=== PATIENT | female | born 1945 | race Caucasian/White ===

== ENCOUNTER → 2023-06-17 11:09 | Outpatient (REF) | payer OTHER, SELFPAY | LOC: HWWDC 11:09 | PROVIDERS: ATTENDING PHYSICIAN Internal Medicine | DX: Z12.31 Encounter for screening mammogram for malignant neoplasm of breast (principal) | CPT/HCPCS: 77063; 77067 ==

== ENCOUNTER → 2024-06-18 13:49 | Outpatient (REF) | payer OTHER, SELFPAY | LOC: HWWDC 13:49 | PROVIDERS: ATTENDING PHYSICIAN Nurse Practitioner; FAMILY PHYSICIAN Internal Medicine | DX: Z12.31 Encounter for screening mammogram for malignant neoplasm of breast (principal) | CPT/HCPCS: 77063; 77067 ==

== ENCOUNTER → 2024-06-28 11:05 | Outpatient (REF) | payer OTHER, SELFPAY | LOC: RCS 11:05 | PROVIDERS: ATTENDING PHYSICIAN Internal Medicine Cardiovascular Disease; FAMILY PHYSICIAN Internal Medicine | DX: I44.0 Atrioventricular block, first degree (principal) | CPT/HCPCS: 93306 ==

== ENCOUNTER → 2024-06-29 10:22 | Outpatient (REF) | payer OTHER, SELFPAY | LOC: HWRAD 10:22 | PROVIDERS: ATTENDING PHYSICIAN Internal Medicine; FAMILY PHYSICIAN Internal Medicine | DX: M81.0 Age-related osteoporosis without current pathological fracture (principal) | CPT/HCPCS: 77080 ==

== ENCOUNTER → 2024-08-07 11:55 | Outpatient (REF) | payer OTHER, SELFPAY | LOC: PAVMRI 11:55 | PROVIDERS: ATTENDING PHYSICIAN Internal Medicine; REFERRING PHYSICIAN Specialist | DX: M54.16 Radiculopathy, lumbar region (principal) | CPT/HCPCS: 72148 ==